=== PATIENT | male | born 1935 | race Caucasian/White ===

== ENCOUNTER 2021-11-25 17:48 | Inpatient (IN) ==
[2021-11-26] MEDS ORDERED: Dextrose Gel 15 GM/37.5 ML TUBE PO PRN ×2 (16:38)
[2021-11-26] MEDS ORDERED: *HR* Dextrose 50 % in Water (Syg) 50 ML SYRINGE IVP PRN (16:38)
[2021-11-26] MEDS ORDERED: D5% in Water 1,000 ML IVC PRN (16:38)
[2021-11-26] MEDS: *HR* Metformin 500 MG TABLET PO SCH (20:44)
[2021-11-26] MEDS: *HR* HYDROcodone/Acet 5/325 mg TABLET PO PRN (20:49)
[2021-11-26] MEDS: Insulin LISPRO 300 UNITS/3 ML VIAL SUBQ SCH (22:12)
[2021-11-27 04:50] LABS: Basophils % 0.3 %; Eosinophils # 0.2 K/mcL (0.0-0.6); Eosinophils % 2.5 %; Hematocrit 31.7 % (37.5-50.1); Hemoglobin 10.4 g/dL (12.9-16.9); Immature Granulocytes % 0.3 % (0-4); Lymphocytes # 4.9 K/mcL (0.6-4.6); Mean Corpuscular HGB Conc 32.8 g/dL (31.6-35.5); Mean Corpuscular Hemoglobin 29.6 pg (28.0-33.3); Mean Corpuscular Volume 90.3 fL (83.0-100.0); Monocytes # 1.4 K/mcL (0.0-1.3); Monocytes % 15.1 %; Neutrophils # 2.8 K/mcL (1.6-8.9); Platelet Count 149 K/mcL (140-400); Red Blood Count 3.51 M/mcL (4.19-5.50); Red Cell Distribution Width 17.2 % (11.5-14.5); Segmented Neutrophils % 29.8 %; White Blood Count 9.5 K/mcL (4.3-11.1)
[2021-11-27 05:00] LABS: Platelet Estimate Normal (Normal)
[2021-11-27 05:04] LABS: Calcium 8.8 mg/dL (8.6-10.3); Potassium 3.7 mEq/L (3.5-5.1)
[2021-11-27] MEDS: *HR* Enoxaparin 40 MG/0.4 ML SYRINGE SQ SCH (06:34)
[2021-11-27] MEDS: Insulin LISPRO 300 UNITS/3 ML VIAL SUBQ SCH ×4 (07:25→21:36)
[2021-11-27] MEDS: Multivit/Ca/Min/Fe/FA 1 TAB TABLET PO SCH (08:26)
[2021-11-27] MEDS: Cholecalciferol (D-3) 1,000 UNIT (25MCG) TABLET PO SCH (08:27)
[2021-11-27] MEDS: *HR* Metformin 500 MG TABLET PO SCH ×2 (08:27→21:32)
[2021-11-27] MEDS: Aspirin Enteric Coated 81 MG Tablet PO SCH (08:28)
[2021-11-27] MEDS: lisinopriL 20 MG TABLET PO SCH (08:28)
[2021-11-27] MEDS: amLODIPine 5 MG TABLET PO SCH (08:28)
[2021-11-27] MEDS: *HR* HYDROcodone/Acet 5/325 mg TABLET PO PRN ×2 (08:28→21:32)
[2021-11-27] MEDS: Torsemide 20 MG TABLET PO SCH (08:28)
[2021-11-27] MEDS: Finasteride 5 MG TABLET PO SCH (08:28)
[2021-11-27] MEDS: Latanoprost 2.5 ML BOTTLE BOTH EYES SCH (21:38)
[2021-11-28] MEDS: *HR* Enoxaparin 40 MG/0.4 ML SYRINGE SQ SCH (05:52)
[2021-11-28] MEDS: Insulin LISPRO 300 UNITS/3 ML VIAL SUBQ SCH ×4 (08:17→20:10)
[2021-11-28] MEDS: *HR* Metformin 500 MG TABLET PO SCH ×2 (08:18→20:15)
[2021-11-28] MEDS: amLODIPine 5 MG TABLET PO SCH (08:19)
[2021-11-28] MEDS: Cholecalciferol (D-3) 1,000 UNIT (25MCG) TABLET PO SCH (08:19)
[2021-11-28] MEDS: *HR* HYDROcodone/Acet 5/325 mg TABLET PO PRN ×3 (08:19→20:18)
[2021-11-28] MEDS: Torsemide 20 MG TABLET PO SCH (08:19)
[2021-11-28] MEDS: Finasteride 5 MG TABLET PO SCH (08:19)
[2021-11-28] MEDS: Multivit/Ca/Min/Fe/FA 1 TAB TABLET PO SCH (08:20)
[2021-11-28] MEDS: Aspirin Enteric Coated 81 MG Tablet PO SCH (08:20)
[2021-11-28] MEDS: lisinopriL 20 MG TABLET PO SCH (08:20)
[2021-11-28] MEDS: Latanoprost 2.5 ML BOTTLE BOTH EYES SCH (21:21)
[2021-11-29] MEDS: *HR* Enoxaparin 40 MG/0.4 ML SYRINGE SQ SCH (04:17)
[2021-11-29 05:02] LABS: Hematocrit 29.8 % (37.5-50.1); Hemoglobin 9.8 g/dL (12.9-16.9); Mean Corpuscular HGB Conc 32.9 g/dL (31.6-35.5); Mean Corpuscular Hemoglobin 29.7 pg (28.0-33.3); Mean Corpuscular Volume 90.3 fL (83.0-100.0); Platelet Count 150 K/mcL (140-400); Red Cell Distribution Width 17.1 % (11.5-14.5); White Blood Count 8.1 K/mcL (4.3-11.1)
[2021-11-29 05:19] LABS: Calcium 8.8 mg/dL (8.6-10.3); Magnesium 2.2 mg/dL (1.6-2.6)
[2021-11-29 06:49] VITALS: BP 137/73; PULSE 77; RESP 15; TEMP 98.1; O2SAT 97
[2021-11-29] MEDS: Insulin LISPRO 300 UNITS/3 ML VIAL SUBQ SCH (07:39)
[2021-11-29] MEDS: Torsemide 20 MG TABLET PO SCH (08:01)
[2021-11-29] MEDS: Finasteride 5 MG TABLET PO SCH (08:02)
[2021-11-29] MEDS: amLODIPine 5 MG TABLET PO SCH (08:02)
[2021-11-29] MEDS: Aspirin Enteric Coated 81 MG Tablet PO SCH (08:02)
[2021-11-29] MEDS: Multivit/Ca/Min/Fe/FA 1 TAB TABLET PO SCH (08:02)
[2021-11-29] MEDS: *HR* HYDROcodone/Acet 5/325 mg TABLET PO PRN (08:02)
[2021-11-29] MEDS: Cholecalciferol (D-3) 1,000 UNIT (25MCG) TABLET PO SCH (08:02)
[2021-11-29] MEDS: lisinopriL 20 MG TABLET PO SCH (08:02)
[2021-11-29] MEDS: *HR* Metformin 500 MG TABLET PO SCH (08:03)
== END 2021-11-29 11:20 | disposition home health service (06) | DRG 560 ==
LOC: INPGRE 11-26 15:55
PROVIDERS: ADMIT Family Medicine; ATTEND Family Medicine